=== PATIENT | male | born 1970 | race Caucasian/White ===

== ENCOUNTER → 2018-10-28 10:06 | Outpatient (CLI) | payer OTHER, SELFPAY ==
--- NOTE | 2018-10-28 10:12 | XR_ITS ---
XR knee LT 3V HISTORY: ITS.REASON: LT KNEE PAIN,IMJURY OF LT KNEE ORDERING PHYSICIAN: Zeina Llamas APRN PATIENT AGE: 47 years COMPARISON: None FINDINGS: No fracture or dislocation. No lytic or blastic change. Normal mineralization. No significant arthritic changes evident. No other significant findings IMPRESSION: Negative Knee
== END ==
PROVIDERS: PCP Nurse Practitioner Family; Visit Provider Nurse Practitioner Family
DX: S89.92XA Unspecified injury of left lower leg, initial encounter (principal)
CPT/HCPCS: 73562

== ENCOUNTER 2018-12-26 08:00 | Outpatient (RCR) | payer OTHER, SELFPAY ==
--- NOTE | 2018-11-22 09:41 | HMH.PTOPEV ---
PT Outpatient Evaluation Rehab PT Outpatient Evaluation Start: 11/22/18 08:09 Freq: Status: Active Protocol: Document 11/22/18 09:32 MARÍA (Rec: 11/22/18 09:41 PHOREGGIE [id number]) Electronically Signed By Eros Jacques, PT 11/22/18 09:32 Outpatient Therapy Subjective History Subjective History Pt is 48 yowm who presents with c/o pain in the left knee x ~ 1 mo. He reports lifting a heavy chair at work with help when he felt a pop in the post left knee with immediate pain. Pain has decreased considerably since initial injury, but remains very stiff . He reports having prior similar injury that felt worse and was determined to be meniscus tear of the left knee . He was able to follow conservative treatment with excellent results at that time , ~ 2 yrs ago. He reports worst symptoms now are with crawling on the floor. He has PMH of HTN. Chief Complaint Pain,Stiff Symptom Type Ache Symptoms Relieved By Rest/Positioning,Ice Symptoms Aggravated By Physical Activity Prior Functional Limitations None Current Functional Limitations Squatting,Walking Symptom Description Intermittent,Activity Dependent Level of pain today (0-10) 2 Pain scale - at its worst (0-10) 8 Hip/Knee Eval Gait Observation General Gait Pattern Observation No Deviations/Normal Palpation Tenderness left Knee Palpation Finding Tenderness Knee Palpation Overall Comment lateral posterior jt line MMT bilateral Hip Flexion Strength Grade 5 Normal Hip Abduction Strength Grade 5 Normal Hip Adduction Strength Grade 5 Normal Hip Extension Strength Grade 5 Normal Knee Extension Strength Grade 5 Normal Knee Flexion Strength Grade 5 Normal ROM left Hip ROM Reason Not Measured Within Functional Limits Knee Extension Active Range of Motion ( 0 degrees) Knee Extension Passive Range of Motion ( 0 degrees) Knee Flexion Active Range of Motion ( 0-110 degrees) Knee Flexion Passive Range of Motion ( 0-125 degrees) Special Tests Hip Scouring (Quadrant) Test Negative Left,Negative Right Knee Anterior Drawer Test Negative
--- NOTE | 2018-12-22 08:25 | HMH.RHREAS ---
Rehab Reassessment Rehab OP Re-assessment Start: 12/22/18 08:19 Freq: Status: Active Protocol: Document 12/22/18 08:23 MARÍA (Rec: 12/22/18 08:25 MARÍA [id number]) Electronically Signed By Eros Jacques, PT 12/22/18 08:23 Rehab Re-assessment Subjective Subjective Pt reportys much less pain, only discomfort with crawling on hands and knees. Objective Objective Notes MMT: left LE grossly 10/16 AROM: Left Knee 0-130 Pain: 06/23 Assessment Progress Assessment Progressing as Expected Assessment Notes Pt continues to see steady improvement with all symptoms. Likely D/C soon. Patient goals met ST-5 Goals Not Met LT-6 Revised Goals none Plan Plan Continue per POC Frequency of Therapy 2 x/wk Duration of therapy 8 wks Time and Billing Re-Eval Time 15 Re-Eval Billing Units 1 PHYSICIAN CERTIFICATION: I certify the specified therapy services for [place] Wilson are required, authorized, and reviewed every 30 days.
== END 2018-12-26 08:05 | disposition home or self-care (01) ==
LOC: PT 08:00
PROVIDERS: Visit Provider Nurse Practitioner Family
DX: S89.92XA Unspecified injury of left lower leg, initial encounter (principal)
CPT/HCPCS: 97010; 97014; 97016; 97033; 97035; 97110; 97163; 97164; G0283

== ENCOUNTER → 2020-01-26 08:50 | Outpatient (CLI) | payer OTHER, SELFPAY ==
--- NOTE | 2020-01-26 | CA_ITS ---
APPROVED REPORT Exam: Exercise Treadmill Technologist: Isabel Birch, Ht: 5 ft 9 in Wt: 213 lbs BSA: 2.12 m2 HR: 72 bpm BP: 150/94 mmHg Rhythm: NSR Medical History Medical History: HTN Medications: Metoprolol,,,,, Asa,,,,, Cardiac Risk Factors: HTN, FHX of CAD Stress Test Details Test: Kennedy HR Resting HR: 77 bpm Max Heart Rate (APMHR): 169 bpm Max HR Achieved: 194 bpm Target HR (85% APMHR): 143 bpm % of APMHR: 114 Recovery HR: 165 bpm BP Resting BP: 150.0/94.0 mmHg Max BP: 210.0/105.0 mmHg Recovery BP: 168.0/95.0 mmHg ECG Resting ECG: NSR Clinical Exercise duration: 12:45 min Highest Stage Achieved: Exercise capacity: 12.8 METs Stress ECG Conclusion PATIENT EXERCISED ON KENNEDY PROTOCOL 12:45 MINUTES. MAX HEART RATE 194 BPM WHICH IS 115% OF PM FOR AGE. MAX BP 210/105. METS = 12.8. TEST STOPPED DUE TO SOA AND FATIGUE. BURNING CHEST PAIN AND SOA. OCCASIONAL PVC AND FUSION BEAT. ONE V.COUPLET. ALLOWING FOR MOTION ARTIFACT THE ST RESPONSE TO EXERCISE APPEARS TO BE WITHIN NORMAL. NORMAL GXT WITH UNUSUALLY HIGH HEART RATE FOR AGE. EXCELLENT EXERCISE TOLERANCE. GXT ONLY (NO IMAGING) Test Summary REST . . . . . . . Standing REST 05:16 0.0 0.0 77 . 150/ 94 . . Stage 1 01:00 10.0 1.7 94 . . . . Stage 1 02:00 10.0 1.7 103 . . . . Stage 1 03:00 10.0 1.7 102 . 155/ 88 . . Stage 2 01:00 12.0 2.5 108 . . . . Stage 2 02:00 12.0 2.5 110 . . . . Stage 2 03:00 12.0 2.5 108 . 186/ 90 . . Stage 3 01:00 14.0 3.4 132 . . . . Stage 3 02:00 14.0 3.4 140 . . . . Stage 3 03:00 14.0 3.4 147 . 186/ 90 . . Stage 4 01:00 16.0 4.2 167 . . . . Stage 4 02:00 16.0 4.2 178 . . . . Stage 4 03:00 16.0 4.2 185 . . . . Stage 5 00:45 18.0 5.0 194 . . . Stop exercise at 12:45 RECOVERY 01:00 0.0 0.0 165 . 178/100 . . RECOVERY 02:00 0.0 0.0 135 . 178/100 . . RECOVERY 03:00 0.0 0.0 118 . 210/105 . . RECOVERY 04:00 0.0 0.0 109 . 168/ 95 . . RECOVERY 05:00 0.0 0.0 115 . 168/ 95 . . RECOVERY 06:00 0.0 0.0 112 . 179/103 . . RECOVERY 07:00 0.0 0.0 112 . 179/103 . . RECOVERY 07:27 0.0 0.0 111 . 151/ 91 . . Electronically signed by : Carlos Alberto Harding, 01/26/2020 18:47:24
--- NOTE | 2020-01-26 09:01 | US_ITS ---
PROCEDURE: US ABDOMEN LIMITED CLINICAL INDICATION: EPIGASTRIC PAIN, back pain, bloating, diarrhea and vomiting COMPARISON: No exams were available for comparison FINDINGS: PANCREAS: Unremarkable. No obvious mass or abnormal fluid collection. No ductal dilatation there is slightly overall increased echogenicity suggesting some degree of fatty infiltration. LIVER: The liver is normal in size and shows homogeneous echogenicity. Flow is hepatopetal in the nondilated main portal vein. RIGHT KIDNEY: The right kidney measures 11.5 x 4.6 by 6.7 cm and appears sonographically normal. GALLBLADDER: The gallbladder is normal in size with normal gallbladder wall thickness. There is a tiny amount of biliary sludge near the neck of the gallbladder but no gallstones are seen. The common bile duct is normal in caliber. IMPRESSION: Small amount of biliary sludge otherwise unremarkable study right upper quadrant Dictated by: Dr. David Cesar MD 01/26/2020 10:11 Dr. David Cesar MD in [place] 01/26/2020 10:11
== END ==
PROVIDERS: PCP Family Medicine; Visit Provider Family Medicine
DX: R10.13 Epigastric pain (principal)
CPT/HCPCS: 76705; 93017

== ENCOUNTER 2020-02-12 09:57 | Day surgery (SDC) | payer OTHER, SELFPAY ==
[2020-02-08 09:13] VITALS: BMI 30.8
[2020-02-12 09:53] LABS: Coronavirus 19 IgG Antibody Negative (Negative); Coronavirus 19 IgM Antibody Negative (Negative)
[2020-02-12 10:41] VITALS: BP 145/90; PULSE 59; RESP 18; TEMP 36.4; O2SAT 99
[2020-02-12 11:37] VITALS: O2SAT 98
--- NOTE | 2020-02-12 11:43 | P.PN_ITS ---
[facility] Anesthesia Checklist - Patient Identification Patient Identification: Arm Band - Structural Data Admitted From: Home Planned Operative Procedure/s: egd Consent for Planned Operative Procedure(s) Verified: Yes Verified Documents: Surgical Consent, History and Physical - NPO Status Verified Time NPO: 00:00 - Additional verifications Anesthesia Reactions: No - Airway Assessment C-Spine Mobility Assessed: Yes (mp2) TMJ Mobility Assessed: Yes Dentition: Good Dentition - Neurological Assessment Level of Consciousness: Awake, Alert - Anesthesia Plan Anesthesia Risk discussed: Yes Anesthesia Plan: Verified ASA Class: II Anesthesia Type: MAC [facility] History I have reviewed the patient's past medical history: Yes Medical History: Reports:: Gastroesophageal Reflux Disease(GERD), Hypertension Denies:: Cancer, Diabetes Mellitus Type 1, Diabetes Mellitus Type 2, Internal Pacemaker, MRSA, Seizures *Have you ever received a pneumonia vaccine?: Yes *Have you received a flu vaccine this season?: Yes Anesthesia experience/problems:: nac Other Surgeries: No: Pacemaker Amputation: No Fractures: No - *Social History Last grade of school completed: High school graduate Smoking Status: Former smoker Tobacco Type: cigars Alcohol Intake: current Alcohol Intake Frequency:: a few times a week Substance Use Type: denies use *Occupational Status:: employed Housing: house Household Members: spouse *Travel in the last 8 weeks: None Family Hx:: Hyperlipidemia, Hypertension
--- NOTE | 2020-02-12 11:56 | P.PCN_ITS ---
[facility] Procedure Note Procedure Note:: Upper Endoscopy Procedure Report: Esophagogastroduodenoscopy with cold biopsies and TTS balloon dilation Endoscopost: Arpan Allison II, MD Referring Physician: Tommy Barksdale MD Date of Procedure: February 12, 2020 Equipment: Olympus GIF 180 standard upper endoscope Sedation: MAC sedation Indications: Mr. Wilson is a 49-year-old gentleman with a prior history of dysphagia. He has had some recurrence of his dysphagia with swallowing difficulties primarily to chicken, bread and apples. He does require regurgitation of the food and feels like there is a gas bubble or gas pressure lock and when he drinks carbonated beverages and belches his symptoms of swallowing improve. He was getting some postprandial bloating but this improved after starting omeprazole. He reports no heartburn or reflux. He did have an EGD with me in January 2017 and at that time had a Schatzki's ring. Procedure: Prior to the procedure, a history and physical exam was performed, and patient's medications and allergies were reviewed. The risks, benefits and alternatives of the sedation and procedure were discussed with the patient. All questions were answered and informed consent was obtained. The patient was brought to the procedure room. Patient identification and proposed procedure were verified by the physician and the nurse. The patient was placed in a left lateral decubitus position and the scope was passed under direct vision. Throughout the procedure, the patient's blood pressure, pulse, and oxygen saturations were monitored continuously. The upper GI endoscopy was accomplished without difficulty. The patient tolerated the procedure well. Findings: The scope was passed directly into the upper esophagus and advanced to the third portion of the duodenum. The post bulbar duodenum and duodenal bulb were normal with normal mucosa and conniventes. There was a small post bulbar duodenum diverticulum in the second portion. The scope was withdrawn through a normal duodenal bulb and pylorus into the stomach. There was bile reflux with mild linear reactive gastropathy of the antrum. The remainder of the antrum, body and fundus of the stomach were grossly normal. Upon retroflexion there was a small 1 to 2 cm hiatal hernia. The scope was then withdrawn into the esophagus. There was an insignificant appearing Schatzki's ring. There was no evidence of reflux esophagitis or Ehnao's. A biopsy was taken at the GE junction to rule out intestinal metaplasia. There were tertiary contractions and evidence of moderate esophageal dysmotility. The entire esophagus was dilated to 60 Syrian/20 mm with a TTS hydrostatic balloon. There was minimal resistance identified. The remainder of the esophageal mucosa was normal. Impression: 1. Nonerosive GERD with moderate esophageal dysmotility and very small 1 to 2 cm sliding hiatal hernia status post dilation to 20 mm 2. Insignificant Schatzki's ring 3. Bile reflux with mild linear reactive gastropathy Plan: I do feel that most of his swallowing difficulty is secondary to the esophageal dysmotility. I will discuss additional dietary measures and treatment options. I will follow-up the biopsies.
[2020-02-12 12:00] VITALS: BP 105/75; PULSE 72; RESP 12; TEMP 36.4; O2SAT 93
[2020-02-12 12:10] VITALS: BP 128/80; PULSE 79; RESP 16; O2SAT 97
[2020-02-12 12:20] VITALS: BP 106/78; PULSE 60; RESP 16; O2SAT 95
[2020-02-12 12:30] VITALS: BP 113/74; PULSE 55; RESP 16; TEMP 36.4; O2SAT 98
== END 2020-02-12 12:34 | disposition home or self-care (01) ==
PROVIDERS: PCP Family Medicine; Visit Provider Internal Medicine Gastroenterology
PROC: 0DJ08ZZ Inspection of Upper Intestinal Tract, Via Natural or Artificial Opening Endoscopic (ICD-10-PCS; CPT 43235; principal; 2020-02-12 11:00)
DX: K21.9 Gastro-esophageal reflux disease without esophagitis (principal); K22.4 Dyskinesia of esophagus; K22.2 Esophageal obstruction; K31.9 Disease of stomach and duodenum, unspecified; K44.9 Diaphragmatic hernia without obstruction or gangrene; I10 Essential (primary) hypertension; Z87.891 Personal history of nicotine dependence; Z83.438 Family history of other disorder of lipoprotein metabolism and other lipidemia; Z82.49 Family history of ischemic heart disease and other diseases of the circulatory system; Z79.899 Other long term (current) drug therapy
CPT/HCPCS: 43239; 43249; 36415; 86328; C1726

== ENCOUNTER → 2020-03-19 09:02 | Outpatient (CLI) | payer OTHER, SELFPAY ==
--- NOTE | 2020-03-19 13:52 | CA_ITS ---
APPROVED REPORT EXAM: Comprehensive 2D, Doppler, and color-flow Echocardiogram Binder Stripper Machine: Lindsay Khan RDCS Ht: 5 ft 9 in Wt: 218lbs BSA: 2.14 BP: 133/86 mmHg Indications: ABN GXT,SOA,TACHYCARDIA,EX SMOKER,SOA,HTN 2D Dimensions LVOT 1.97 cm (M/F) 1.5-2.5 M-Mode Dimensions RVDd 3.46 cm (0.9-2.6) LVDd 5.32 cm (3.5-5.7) LVDs 3.80 cm (3.5-5.7) IVSd 0.57 cm (0.6-1.1) PWd 1.03 cm (0.6-1.1) EF (Teich) 54.60% FS 28.60% EDV (Teich) 136.50 mL ESV (Teich) 62.00 mL LV Diastology E/A Ratio 0.79 Mitral Valve MV A Velocity 58.00 (40-130 cm/s) Left Ventricle Left atrium is mildly enlarged, left ventricle is normal size, mild concentric left ventricular hypertrophy, visually estimated ejection fraction 55% with no regional wall motion abnormality, grade 1 diastolic dysfunction seen without tissue Doppler evidence of raise left atrial pressure. Right Ventricle Right atrium and right ventricle are mildly enlarged with normal contractility. Aortic Valve Aortic valve is minimally thickened and fibrosed, there is no aortic stenosis or aortic insufficiency. Mitral Valve Mitral valve is grossly normal, there is mild mitral regurgitation. Tricuspid Valve Tricuspid valve grossly normal, there is mild tricuspid regurgitation. Tricuspid regurgitation jet velocity is inadequate for calculation of the right ventricular systolic pressure. Pulmonic Valve Pulmonic valve is poorly visualized. Great Vessels Aortic root is normal size. Pericardium No significant pericardial effusion noted. Conclusion 1. Mild biatrial enlargement, normal left ventricular size, mild concentric left ventricular hypertrophy, visually estimated ejection fraction 55% with no regional wall motion abnormality, grade 1 diastolic dysfunction seen without tissue Doppler evidence of raise left atrial pressure. 2. Mildly enlarged right ventricle with normal contractility. 3. Mild mitral and tricuspid regurgitation. 4. No significant pericardial effusion noted. Electronically signed by : José Manuel Paige, 03/19/2020 19:42:11
== END ==
PROVIDERS: PCP Family Medicine; Visit Provider Family Medicine
DX: R00.0 Tachycardia, unspecified (principal); R07.9 Chest pain, unspecified; R06.00 Dyspnea, unspecified; R94.31 Abnormal electrocardiogram [ECG] [EKG]; R94.39 Abnormal result of other cardiovascular function study; I10 Essential (primary) hypertension; K21.9 Gastro-esophageal reflux disease without esophagitis; Z82.49 Family history of ischemic heart disease and other diseases of the circulatory system; Z87.891 Personal history of nicotine dependence
CPT/HCPCS: 93225; 93226; 93306

== ENCOUNTER → 2020-03-19 13:46 | Outpatient (CLI) | payer SELFPAY ==
--- NOTE | 2020-03-19 13:55 | CT_ITS ---
PROCEDURE: CT HEART W CALCIUM SCORE CLINICAL HISTORY: angina, ex smoker, HTN, HLD COMPARISON: No exams were available for comparison TECHNIQUE: Axial images obtained with sagittal and coronal reformats. All CT scans at the facility use one or more dose reduction, viz: automated exposure control, ma/kV adjustment per patient size (including targeted exams where dose is matched to indication, i.e. head), or iterative reconstruction technique. FINDINGS: Coronary artery calcium score is 196.. Moderate calcific plaque burden with high cardiovascular disease risk IMPRESSION: Moderate calcific plaque burden with high cardiovascular disease risk Dictated by: Mariusz White MD 03/19/2020 18:34 Mariusz White MD in [place] 03/19/2020 18:34
== END ==
PROVIDERS: PCP Family Medicine; Visit Provider Internal Medicine Cardiovascular Disease
DX: Z13.6 Encounter for screening for cardiovascular disorders (principal); I10 Essential (primary) hypertension; R00.0 Tachycardia, unspecified; R06.00 Dyspnea, unspecified; R07.9 Chest pain, unspecified; R94.31 Abnormal electrocardiogram [ECG] [EKG]; R94.39 Abnormal result of other cardiovascular function study; Z82.49 Family history of ischemic heart disease and other diseases of the circulatory system; Z87.891 Personal history of nicotine dependence
CPT/HCPCS: 75571

== ENCOUNTER → 2020-03-20 10:30 | Outpatient (CLI) | payer OTHER, SELFPAY ==
[2020-03-20 11:05] LABS: Basophils # 0.1 K/mm3 (0-0.2); Basophils % 0.8 % (0.1-2.0); Eosinophils # 0.3 K/mm3 (0.0-0.4); Eosinophils % 4.4 % (0.1-12.0); Hematocrit 49.6 % (42.0-52.0); Hemoglobin 15.7 g/dL (14.1-18.0); Lymphocytes # 1.9 K/mm3 (0.7-4.5); Lymphocytes % 32.4 % (10-50); Mean Corpuscular HGB Conc 31.6 g/dL (31.8-35.4); Mean Corpuscular Hemoglobin 30.8 pg (27.0-31.2); Mean Corpuscular Volume 97.4 fl (80-94); Mean Platelet Volume 7.5 fl (7.4-10.4); Monocytes # 0.5 K/mm3 (0.1-1.0); Monocytes % 7.9 % (1.7-9.3); Neutrophils # 3.2 K/mm3 (1.8-7.8); Neutrophils % 54.6 % (37.0-80.0); Platelet Count 270 K/mm3 (142-424); Red Blood Count 5.09 M/mm3 (4.60-6.20); White Blood Count 5.9 K/mm3 (4.8-10.8)
[2020-03-20 11:41] LABS: Chloride 102 mmol/L (98-107); Potassium 4.6 mmoL/L (3.5-5.1); Sodium 140 mmol/L (136-145)
[2020-03-20 11:44] LABS: Anion Gap 13.6 mEq/L (5-15); Blood Urea Nitrogen 13 mg/dl (9-20); Calcium 9.5 mg/dl (8.4-10.2); Carbon Dioxide 29 mmol/L (22.0-30.0); Estimated Glomerular Filt Rate 119 ml/min (>60); GFR (African American) 144 ML/MIN (>60); Glucose 114 mg/dl (74-100)
[2020-03-20 12:28] LABS: Coronavirus 19 IgM Antibody Negative (Negative)
[2020-03-20 12:29] LABS: Coronavirus 19 IgG Antibody Positive (Negative)
== END ==
PROVIDERS: Visit Provider Internal Medicine
DX: Z01.89 Encounter for other specified special examinations (principal); I20.8 Other forms of angina pectoris; R06.00 Dyspnea, unspecified; I10 Essential (primary) hypertension; R93.1 Abnormal findings on diagnostic imaging of heart and coronary circulation; U07.1 COVID-19
CPT/HCPCS: 36415; 80048; 85025; 86328

== ENCOUNTER 2020-03-22 08:35 | Day surgery (SDC) | payer OTHER, SELFPAY ==
[2020-03-22] VITALS (11 sets, daily range): BP systolic 110–139; BP diastolic 65–102; PULSE 60–78; RESP 16–20; TEMP 36.4; O2SAT 92–100; BMI 32.0
--- NOTE | 2020-03-22 07:16 | IR_ITS ---
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 COMPLICATIONS NONE Estimated Blood Loss: less than 10 mls TECHNIQUE One percent lidocaine used to anesthetize the right anterior aspect of the wrist. The right radial artery was accessed via the Seldinger technique. A 6 Tajik sheath was placed in the right radial artery. 2.5 mg of verapamil, 800 mcg of nitroglycerin, 1mg Lidocaine and 5000 U Heparin were given through the arterial sheath. The trap catheter was also used to perform left heart catheterization, left ventriculogram and selective coronary angiogram. At the end of the procedure the sheath was removed good hemostasis was achieved using Traclet band, patient was transferred to the postop holding area in stable condition. 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 Medical management for the myocardial bridge as well as the mid dominant right coronary artery stenosis 2. Recommend LDL less than 55 3. Avoidance of tobacco products 4. Patient may benefit from low-dose beta-blockers or verapamil or diltiazem. It is very unlikely the myocardial bridge will produce any clinical significance in the future 5. Aspirin 81 mg daily 6. Aggressive risk factor modification Electronically signed by : Marck Valenzuela, 03/22/2020 10:07:32
== END 2020-03-22 12:56 | disposition home or self-care (01) ==
LOC: CATHLAB 08:36
PROVIDERS: PCP Family Medicine; Visit Provider Internal Medicine
DX: I25.118 Atherosclerotic heart disease of native coronary artery with other forms of angina pectoris (principal); I10 Essential (primary) hypertension; K21.9 Gastro-esophageal reflux disease without esophagitis; R06.00 Dyspnea, unspecified; R93.1 Abnormal findings on diagnostic imaging of heart and coronary circulation; Z87.891 Personal history of nicotine dependence; Z79.82 Long term (current) use of aspirin
CPT/HCPCS: 93458; 99152; C1725; C1769; J1644; Q9967

== ENCOUNTER → 2020-04-01 11:42 | Outpatient (CLI) | payer OTHER, SELFPAY | PROVIDERS: PCP Family Medicine; Visit Provider Internal Medicine Cardiovascular Disease | DX: G47.30 Sleep apnea, unspecified (principal); R40.0 Somnolence; R53.83 Other fatigue; I25.10 Atherosclerotic heart disease of native coronary artery without angina pectoris; E66.9 Obesity, unspecified; Q24.5 Malformation of coronary vessels | CPT/HCPCS: G0399 ==

== ENCOUNTER → 2020-04-05 10:55 | Outpatient (CLI) | payer OTHER, SELFPAY ==
[2020-04-05 13:55] LABS: Chloride 100 mmol/L (98-107); Potassium 4.4 mmoL/L (3.5-5.1); Sodium 139 mmol/L (136-145)
[2020-04-05 13:58] LABS: Anion Gap 11.4 mEq/L (5-15); Blood Urea Nitrogen 13 mg/dl (9-20); Calcium 9.2 mg/dl (8.4-10.2); Carbon Dioxide 32 mmol/L (22.0-30.0); Estimated Glomerular Filt Rate 119 ml/min (>60); GFR (African American) 144 ML/MIN (>60); Glucose 96 mg/dl (74-100)
[2020-04-05 14:07] LABS: NT Pro Brain Natriuretic Pep. 24.8 pg/mL (0-125)
== END ==
PROVIDERS: Visit Provider Internal Medicine Cardiovascular Disease
DX: R00.0 Tachycardia, unspecified (principal); R06.00 Dyspnea, unspecified; R07.9 Chest pain, unspecified; R94.31 Abnormal electrocardiogram [ECG] [EKG]; I10 Essential (primary) hypertension; K21.9 Gastro-esophageal reflux disease without esophagitis; Z82.49 Family history of ischemic heart disease and other diseases of the circulatory system; Z87.891 Personal history of nicotine dependence
CPT/HCPCS: 36415; 80048; 83880

== ENCOUNTER → 2020-04-17 09:38 | Outpatient (CLI) | payer OTHER, SELFPAY ==
[2020-04-17 12:36] LABS: Ferritin 27.1 ng/ml (17.9-464)
== END ==
PROVIDERS: Visit Provider Nurse Practitioner Family
DX: E83.10 Disorder of iron metabolism, unspecified (principal); G25.81 Restless legs syndrome; G47.33 Obstructive sleep apnea (adult) (pediatric)
CPT/HCPCS: 36415; 82728

== ENCOUNTER → 2020-05-28 15:14 | Outpatient (CLI) | payer OTHER, SELFPAY ==
[2020-05-28 16:28] LABS: Coronavirus 19 IgG Antibody Negative (Negative); Coronavirus 19 IgM Antibody Negative (Negative)
== END ==
PROVIDERS: Visit Provider Nurse Practitioner Family
DX: Z01.818 Encounter for other preprocedural examination (principal)
CPT/HCPCS: 36415; 86328

== ENCOUNTER → 2020-05-29 20:10 | Outpatient (CLI) | payer OTHER, SELFPAY | PROVIDERS: PCP Family Medicine; Visit Provider Nurse Practitioner Family | DX: G47.30 Sleep apnea, unspecified (principal); I10 Essential (primary) hypertension; R40.0 Somnolence | CPT/HCPCS: 95810 ==

== ENCOUNTER → 2020-07-17 09:10 | Outpatient (CLI) | payer OTHER, SELFPAY ==
--- NOTE | 2020-07-17 09:21 | XR_ITS ---
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 There is mild rightward nasal septal deviation. There is mild prominence of the dorsum sella. IMPRESSION: No acute finding. Mild prominence of the dorsum sella. This is of questionable clinical significance Dictated by: Mariusz White MD 07/17/2020 15:51 Mariusz White MD in [place] 07/17/2020 15:51
== END ==
PROVIDERS: PCP Family Medicine; Visit Provider Family Medicine
DX: J01.20 Acute ethmoidal sinusitis, unspecified (principal); J32.0 Chronic maxillary sinusitis
CPT/HCPCS: 70220

== ENCOUNTER → 2020-07-24 08:20 | Outpatient (CLI) | payer OTHER, SELFPAY ==
[2020-07-24 09:04] LABS: Erythrocyte Sedimentation Rate 8 mm/hr (0-20)
[2020-08-12 08:37] LABS: Antinuclear Antibodies (ANA) NEGATIVE
== END ==
PROVIDERS: Visit Provider Specialist
DX: R51.9 Headache, unspecified (principal); Q27.9 Congenital malformation of peripheral vascular system, unspecified; R93.0 Abnormal findings on diagnostic imaging of skull and head, not elsewhere classified
CPT/HCPCS: 36415; 85651; 86038

== ENCOUNTER → 2021-07-10 08:57 | Outpatient (CLI) | payer OTHER, SELFPAY ==
[2021-07-11 13:25] LABS: Covid-19 Nasal PCR Sendout Lex POSITIVE
== END ==
PROVIDERS: Visit Provider Nurse Practitioner
DX: U07.1 COVID-19 (principal)
CPT/HCPCS: C9803; U0004; U0005

== ENCOUNTER 2022-04-04 18:40 | Emergency (ER) | payer OTHER, SELFPAY ==
[2022-04-04 18:51] VITALS: BP 121/86; PULSE 92; RESP 16; TEMP 36.9; O2SAT 97; BMI 28.9
--- NOTE | 2022-04-04 19:39 | EXP.UTC ---
Discharge Plan Disposition Patient Disposition: Home, Self-Care Condition: Good Prescriptions Prescriptions: No Action omega-3 fatty acids [Fish Oil Concentrate] 1,000 mg capsule 1,000 mg PO DAILY aspirin [Adult Low Dose Aspirin] 81 mg tablet,delayed release (DR/EC) 81 mg PO DAILY Qty: 30 3RF Ubrelvy 100 mg tablet 100 mg PO ONCE PRN Ubrelvy 100 mg tablet 0RF amitriptyline 10 mg tablet 20 mg PO HS 90 Days Qty: 180 3RF rosuvastatin [Crestor] 20 mg tablet 20 mg PO DAILY Qty: 90 3RF metoprolol succinate [Toprol XL] 100 mg tablet extended release 24 hr 100 mg PO DAILY Qty: 90 3RF losartan 50 mg tablet See Rx Instructions .ROUTE .COMPLEX Qty: 90 1RF Dose Instruction: TAKE 1 TABLET BY MOUTH ONCE DAILY WITH HCTZ Rx Instructions: TAKE 1 TABLET BY MOUTH ONCE DAILY WITH HCTZ hydrochlorothiazide 12.5 mg capsule See Rx Instructions .ROUTE .COMPLEX Qty: 90 1RF Dose Instruction: TAKE 1 CAPSULE BY MOUTH ONCE DAILY WITH LOSARTAN Rx Instructions: TAKE 1 CAPSULE BY MOUTH ONCE DAILY WITH LOSARTAN omeprazole 40 MG capsule,delayed release(DR/EC) 40 mg PO DAILY Referrals Follow up/Referrals: Kemar Aguilar MD [Physician] - See instructions Kathy Barksdale MD [Primary Care Provider] - See instructions Activity Restrictions/Add. Instructions Additional Instructions/Restrictions: Take tylenol or ibuprofen for pain or fever. Follow up with the ENT doctor here. I put in a referral and I will call them on Wednesday to make sure they will see you fernnada. Please call the office on Wednesday to make the appointment. The number will be on this paperwork. GO TO THE ER FOR ANY WORSENING SYMPTOMS Clinical Impressions Clinical Impression: Foreign body in auricle of left ear Instructions Patient Instructions: DI for Removal of Foreign Body From Ear Discharge ED Provider: Ch[place] Clark [facility] General Stated complaint: hearing aid cap inlarged in ear Mode of Arrival: Ambulatory Source of Information: Patient Limitations: No Limitations Time Seen by Provider: 04/04/22 19:52 Description of Symptoms (Recalled from Triage Doc. by RN): pt comes in with possible piece of hearing aid stuck in ear canal. HEENT Symptoms (Recalled from RN notes): Yes Resp Symptoms (Recalled from RN notes): No Skin Symptoms (Recalled from RN notes): No MS Symptoms (Recalled from RN notes): No Functional Status (Recalled from RN notes): n/a History of Present Illness Provider Complaint: He states that this morning, when he was changing his ear piece on his left hearing aid the accidently let the ear piece go back into his ear canal. He states that for the rest of the day he has been unable to get it out. He denies any ear pain, but he is having some pressure and decreased hearing in that ear now. Related Data Home Medications Medication Instructions Recorded Confirmed omeprazole 40 mg capsule,delayed 40 mg PO DAILY stomach 02/08/20 02/17/22 release omega-3 fatty acids 1,000 mg 1,000 mg PO DAILY 03/15/20 02/17/22 capsule (Fish Oil Concentrate) ubrogepant 100 mg tablet (Ubrelvy) 100 mg PO ONCE PRN 12/27/20 02/17/22 Previous Rx's Medication Instructions Recorded aspirin 81 mg tablet,delayed 81 mg PO DAILY #30 tabs 03/15/20 release (Adult Low Dose Aspirin) metoprolol succinate 100 mg 100 mg PO DAILY #90 tabs 06/30/21 tablet,extended release 24 hr (Toprol XL) rosuvastatin 20 mg tablet (Crestor) 20 mg PO DAILY #90 tabs 06/30/21 hydrochlorothiazide 12.5 mg capsule See Rx Instructions .Route 12/11/21 .COMPLEX #90 caps losartan 50 mg tablet See Rx Instructions .Route 12/11/21 .COMPLEX #90 tabs amitriptyline 10 mg tablet 20 mg PO HS headaches 90 days #180 02/17/22 tabs Allergies Allergy/AdvReac Type Severity Reaction Status Date / Time No Known Allergies Allergy Verified 04/04/22 18:57 Worker's Comp Is this a Worker's Comp case?:
[2022-04-04 19:49] VITALS: BP 121/86; PULSE 92; RESP 16; TEMP 36.9
== END 2022-04-04 19:55 | disposition home or self-care (01) ==
PROVIDERS: Emergency Provider Nurse Practitioner Family; PCP Family Medicine
DX: T16.2XXA Foreign body in left ear, initial encounter (principal); I20.9 Angina pectoris, unspecified; G44.209 Tension-type headache, unspecified, not intractable; Z79.82 Long term (current) use of aspirin; Z79.899 Other long term (current) drug therapy; Z87.891 Personal history of nicotine dependence; Z82.49 Family history of ischemic heart disease and other diseases of the circulatory system; Z83.438 Family history of other disorder of lipoprotein metabolism and other lipidemia
CPT/HCPCS: 69200; 99213; G0463

== ENCOUNTER 2022-06-14 11:06 | Emergency (ER) | payer OTHER, SELFPAY ==
[2022-06-14 11:35] VITALS: BP 108/68; PULSE 71; RESP 18; TEMP 37; O2SAT 97; BMI 30.2
--- NOTE | 2022-06-14 11:37 | EXP.UTC ---
Discharge Plan Disposition Patient Disposition: Home, Self-Care Condition: Good Prescriptions Prescriptions: New benzonatate [benzonatate] 100 mg capsule 100 mg PO TIDP PRN (Reason: Cough) Qty: 30 0RF methylprednisolone 4 mg Tablets,Dose Pack 4 mg PO DIRECTED Qty: 21 0RF amoxicillin-pot clavulanate 875-125 mg Tablet 1 tab PO Q12H Qty: 20 0RF guaifenesin [Mucinex] 600 mg tablet extended release 12hr 600 - 1,200 mg PO BIDP PRN (Reason: Congestion) Qty: 30 0RF No Action omega-3 fatty acids [Fish Oil Concentrate] 1,000 mg capsule 1,000 mg PO DAILY aspirin [Adult Low Dose Aspirin] 81 mg tablet,delayed release (DR/EC) 81 mg PO DAILY Qty: 30 3RF Ubrelvy 100 mg tablet 0RF amitriptyline 10 mg tablet 20 mg PO HS 90 Days Qty: 180 3RF rosuvastatin [Crestor] 20 mg tablet 20 mg PO DAILY Qty: 90 3RF metoprolol succinate [Toprol XL] 100 mg tablet extended release 24 hr 100 mg PO DAILY Qty: 90 3RF losartan 50 mg tablet See Rx Instructions .ROUTE .COMPLEX Qty: 90 1RF Dose Instruction: TAKE 1 TABLET BY MOUTH ONCE DAILY WITH HCTZ Rx Instructions: TAKE 1 TABLET BY MOUTH ONCE DAILY WITH HCTZ hydrochlorothiazide 12.5 mg capsule See Rx Instructions .ROUTE .COMPLEX Qty: 90 1RF Dose Instruction: TAKE 1 CAPSULE BY MOUTH ONCE DAILY WITH LOSARTAN Rx Instructions: TAKE 1 CAPSULE BY MOUTH ONCE DAILY WITH LOSARTAN omeprazole 40 MG capsule,delayed release(DR/EC) 40 mg PO DAILY Referrals Follow up/Referrals: Kathy Barksdale MD [Primary Care Provider] - See instructions Activity Restrictions/Add. Instructions Additional Instructions/Restrictions: Drink plenty of fluids. Take tylenol or ibuprofen for pain or fever. Take the medications as directed. Follow up with your regular doctor. GO TO THE ER FOR ANY WORSENING SYMPTOMS Don't start the oral steroids until tomorrow, since you had the shot here today. Clinical Impressions Clinical Impression: Sinusitis, Acute bronchitis Instructions Patient Instructions: DI for Sinusitis, DI for Acute Bronchitis Discharge ED Provider: Chico Clark [facility] General Stated complaint: Sore throat,cough,Congestion Time Seen by Provider: 06/14/22 11:37 History of Present Illness Provider Complaint: He states that for the past 4 days he has had sinus congestion, chest congestion, productive cough, and malaise. He denies shortness of breath/fever/chills/body aches. He had a negative covid-19 test yesterday. Related Data Home Medications Medication Instructions Recorded Confirmed omeprazole 40 mg capsule,delayed 40 mg PO DAILY stomach 02/08/20 02/17/22 release omega-3 fatty acids 1,000 mg 1,000 mg PO DAILY 03/15/20 02/17/22 capsule (Fish Oil Concentrate) Previous Rx's Medication Instructions Recorded aspirin 81 mg tablet,delayed 81 mg PO DAILY #30 tabs 03/15/20 release (Adult Low Dose Aspirin) metoprolol succinate 100 mg 100 mg PO DAILY #90 tabs 06/30/21 tablet,extended release 24 hr (Toprol XL) rosuvastatin 20 mg tablet (Crestor) 20 mg PO DAILY #90 tabs 06/30/21 losartan 50 mg tablet See Rx Instructions .Route 12/11/21 .COMPLEX #90 tabs amitriptyline 10 mg tablet 20 mg PO HS headaches 90 days #180 02/17/22 tabs hydrochlorothiazide 12.5 mg capsule See Rx Instructions .Route 06/09/22 .COMPLEX #90 caps amoxicillin 875 mg-potassium 1 tab PO Q12H #20 tabs 06/14/22 clavulanate 125 mg tablet benzonatate 100 mg capsule 100 mg PO TIDP PRN Cough #30 caps 06/14/22 guaifenesin 600 mg tablet, 600 - 1,200 mg PO BIDP PRN 06/14/22 extended release 12 hr (Mucinex) Congestion #30 tabs methylprednisolone 4 mg tablets in 4 mg PO DIRECTED #21 tabs 06/14/22 a dose pack Allergies Allergy/AdvReac Type Severity Reaction Status Date / Time No Known Allergies Allergy Verified 04/06/22 13:27 [facility] Disclaimer: The information contained in this section m
[2022-06-14 11:49] LABS: UTC Strep Screen (Rapid) Negative (Negative)
[2022-06-14 11:50] LABS: UTC Influenza A Antigen Negative (Negative); UTC Influenza B Antigen Negative (Negative)
[2022-06-14 12:25] VITALS: BP 108/68; PULSE 71; RESP 18; TEMP 37; O2SAT 97
== END 2022-06-14 12:29 | disposition home or self-care (01) ==
PROVIDERS: Emergency Provider Nurse Practitioner Family; PCP Family Medicine
DX: J20.9 Acute bronchitis, unspecified (principal); J32.9 Chronic sinusitis, unspecified
CPT/HCPCS: 87804; 87880; 96372; 99212; 99213; G0463

== ENCOUNTER → 2023-01-27 09:54 | Outpatient (CLI) | payer BC, SELFPAY ==
[2023-01-27 10:36] LABS: Basophils % 0.7 % (0.1-2.0); Eosinophils # 0.3 K/mm3 (0.0-0.4); Eosinophils % 4.4 % (0.1-12.0); Hematocrit 50.5 % (42.0-52.0); Hemoglobin 16.5 g/dL (14.1-18.0); Lymphocytes # 1.8 K/mm3 (0.7-4.5); Lymphocytes % 32.1 % (10-50); Mean Corpuscular HGB Conc 32.6 g/dL (31.8-35.4); Mean Corpuscular Hemoglobin 31.3 pg (27.0-31.2); Mean Corpuscular Volume 96.1 fl (80-94); Mean Platelet Volume 7.7 fl (7.4-10.4); Monocytes # 0.4 K/mm3 (0.1-1.0); Monocytes % 7.1 % (1.7-9.3); Neutrophils # 3.1 K/mm3 (1.8-7.8); Neutrophils % 55.6 % (37.0-80.0); Platelet Count 256 K/mm3 (142-424); Red Blood Count 5.26 M/mm3 (4.60-6.20); Red Cell Distribution Width 13.5 % (11.5-17.5); White Blood Count 5.7 K/mm3 (4.8-10.8)
[2023-01-27 11:48] LABS: Alanine Aminotransferase 25 U/L (12-78); Albumin Level 4.4 g/dl (3.5-5.0); Alkaline Phosphatase 90 U/L (38-126); Anion Gap 11.7 mEq/L (5-15); Aspartate Amino Transferase 29 U/L (17-59); Bilirubin,Indirect 0.4 mg/dL (0.0-0.9); Bilirubin,Total 0.4 mg/dl (0.2-1.3); Bilirubin,Unconjugated 0.5 mg/dL (0.0-1.1); Blood Urea Nitrogen 14 mg/dl (9-20); Calcium 9.3 mg/dl (8.4-10.2); Carbon Dioxide 30 mmol/L (22.0-30.0); Chloride 104 mmol/L (98-107); Chol/HDL Ratio 3.7 (1-3.5); Cholesterol 151 mg/dl (140-200); Estimated Glomerular Filt Rate 118 ml/min (>60); GFR (African American) 142 ML/MIN (>60); Glucose 99 mg/dl (74-100); HDL Cholesterol 41 mg/dl (40-60); Magnesium 1.8 mg/dl (1.6-2.3); Potassium 4.7 mmoL/L (3.5-5.1); Sodium 141 mmol/L (136-145); Total Protein,Serum 7.1 g/dl (6.3-8.2); Triglycerides 140 mg/dl (30-150); VLDL Cholesterol 28 mg/dL (0-40)
[2023-01-27 11:59] LABS: Direct LDL Cholesterol 78.29 mg/dL (100-129)
[2023-01-27 12:05] LABS: Free T4 (Free Thyroxine) 0.73 ng/dl (0.78-2.19)
== END ==
PROVIDERS: PCP Family Medicine; Visit Provider Nurse Practitioner
DX: I25.10 Atherosclerotic heart disease of native coronary artery without angina pectoris (principal); I10 Essential (primary) hypertension; E78.5 Hyperlipidemia, unspecified; Q24.5 Malformation of coronary vessels; R94.31 Abnormal electrocardiogram [ECG] [EKG]
CPT/HCPCS: 80048; 80061; 80076; 83735; 84439; 84443; 85025

== ENCOUNTER 2024-01-31 08:56 | Outpatient (CLI) | payer BC, SELFPAY ==
[2024-01-31 09:28] LABS: Basophils # 0.1 K/mm3 (0-0.2); Eosinophils # 0.3 K/mm3 (0.0-0.4); Eosinophils % 4.4 % (0.1-12.0); Hematocrit 48.8 % (42.0-52.0); Hemoglobin 15.4 g/dL (14.1-18.0); Lymphocytes # 2.2 K/mm3 (0.7-4.5); Lymphocytes % 36.2 % (10-50); Mean Corpuscular HGB Conc 31.6 g/dL (31.8-35.4); Mean Corpuscular Hemoglobin 31.1 pg (27.0-31.2); Mean Corpuscular Volume 98.4 fl (80-94); Monocytes # 0.4 K/mm3 (0.1-1.0); Monocytes % 5.9 % (1.7-9.3); Neutrophils # 3.2 K/mm3 (1.8-7.8); Neutrophils % 52.5 % (37.0-80.0); Platelet Count 259 K/mm3 (142-424); Red Blood Count 4.96 M/mm3 (4.60-6.20); Red Cell Distribution Width 13.7 % (11.5-17.5)
[2024-01-31 10:23] LABS: Alanine Aminotransferase 22 U/L (12-78); Albumin Level 3.8 g/dl (3.5-5.0); Alkaline Phosphatase 68 U/L (38-126); Anion Gap 10.4 mEq/L (5-15); Aspartate Amino Transferase 28 U/L (17-59); Bilirubin,Indirect 0.5 mg/dL (0.0-0.9); Bilirubin,Total 0.5 mg/dl (0.2-1.3); Bilirubin,Unconjugated 0.7 mg/dL (0.0-1.1); Blood Urea Nitrogen 14 mg/dl (9-20); Calcium 9.2 mg/dl (8.4-10.2); Carbon Dioxide 26 mmol/L (22.0-30.0); Chloride 106 mmol/L (98-107); Cholesterol 123 mg/dl (140-200); Estimated Glomerular Filt Rate 117 ml/min (>60); GFR (African American) 142 ML/MIN (>60); Glucose 101 mg/dl (74-100); HDL Cholesterol 41 mg/dl (40-60); Magnesium 1.8 mg/dl (1.6-2.3); Potassium 4.4 mmoL/L (3.5-5.1); Sodium 138 mmol/L (136-145); Total Protein,Serum 6.4 g/dl (6.3-8.2); Triglycerides 186 mg/dl (30-150); VLDL Cholesterol 37 mg/dL (0-40)
[2024-01-31 10:34] LABS: Direct LDL Cholesterol 46.54 mg/dL (100-129)
[2024-01-31 10:38] LABS: Free T4 (Free Thyroxine) 0.95 ng/dl (0.78-2.19)
== END 2024-01-31 23:59 | disposition home or self-care (01) ==
LOC: LAB 08:57
PROVIDERS: PCP Family Medicine; Visit Provider Nurse Practitioner
DX: E78.49 Other hyperlipidemia (principal); I11.9 Hypertensive heart disease without heart failure; I25.10 Atherosclerotic heart disease of native coronary artery without angina pectoris; Q24.5 Malformation of coronary vessels; R94.31 Abnormal electrocardiogram [ECG] [EKG]; Z87.891 Personal history of nicotine dependence
CPT/HCPCS: 36415; 80048; 80061; 80076; 83735; 84439; 84443; 85025

== ENCOUNTER 2025-01-01 09:24 | Day surgery (SDC) | payer BC, SELFPAY ==
[2024-12-29 12:09] VITALS: BMI 30.2
[2025-01-01 09:52] VITALS: BP 118/89; PULSE 73; RESP 18; TEMP 36.3; O2SAT 98
[2025-01-01] MEDS: LACTATED RINGERS 1000ML 1,000 ML 50 ML IV (10:04)
--- NOTE | 2025-01-01 10:08 | EXP.ANES.CKL ---
[facility] Disclaimer: The information contained in this section may have been updated after the patient was seen, as this information can be updated by other users. Medical History History of COVID-19 Hyperlipidemia Hypertension Myocardial bridge Injury of femoral artery Episodic tension-type headache, not intractable Elevated coronary artery calcium score Atypical angina Surgical History History of colonoscopy Hx of cardiac catheterization Family History Other Coronary artery disease Heart attack Hyperlipidemia Hypertension Social History Smoking Status: Former smoker tobacco type: cigars smoking status stop date: 1996 second hand exposure: No alcohol intake: current alcohol intake frequency: a few times a month substance use type: denies use current occupational status: employed and retired Travel in the last 8 weeks?: None household members: spouse housing: house current occupation: [employer] current occupational exposures/hazards: No Have you lived/traveled outside [place] in past 30 days?: No Contact w/someone who lives/traveled outside [place] past 30 days?: No Exposure to someone with infectious disease in past 14 days?: No Do you have a fever (greater than 100.4 F or 38 C)?: No Have you tested positive for COVID-19?: No Exposed to someone with COVID-19 in past 14 days?: No Do you have a sore throat?: No Do you have a cough?: No Do you have any weakness?: No Are you experiencing any nausea/vomitting?: No Do you have any diarrhea?: No Are you experiencing any unusual bleeding?: No Do you have any muscle aches/pain?: No Do you have any abdominal pain?: No Are you experiencing loss of taste or smell?: No [facility] Anesthesia Checklist Patient Identification Patient Identification: Arm Band Structural Data Admitted From: Home Planned Operative Procedure/s: Colonoscopy Consent for Planned Operative Procedure(s) Verified: Yes Verified Documents: Surgical Consent and History and Physical NPO Status Verified Time NPO: 07:00 (finished prep) Additional verifications Anesthesia Reactions: No Airway Assessment Mallampati Score:: Class II C-Spine Mobility Assessed: Yes TMJ Mobility Assessed: Yes Dentition: Good Dentition Neurological Assessment Level of Consciousness: Awake, Alert and Appropriate Anesthesia Plan Anesthesia Risk discussed: Yes Anesthesia Plan: Verified ASA Class: II Anesthesia Type: MAC
--- NOTE | 2025-01-01 10:30 | EXP.HP ---
History of Present Illness *Admission Date: 01/01/25 *Reason for visit:: Personal history of colon polyps *History of present illness: Mr. Wilson is a 54-year-old gentleman who is here for screening colonoscopy. Years ago he did have colon polyps removed. The examination is deemed medically necessary for screening colonoscopy. The patient has been seen, interviewed and examined prior to the procedure by both myself and the anesthesia provider. [facility] Disclaimer: The information contained in this section may have been updated after the patient was seen, as this information can be updated by other users. Medical History (Updated 01/01/25 @ 10:36 by Arpan Allison II, MD) History of COVID-19 Hyperlipidemia Hypertension Myocardial bridge Injury of femoral artery Episodic tension-type headache, not intractable Elevated coronary artery calcium score Atypical angina Surgical History History of colonoscopy Hx of cardiac catheterization Family History Other Coronary artery disease Heart attack Hyperlipidemia Hypertension Social History Smoking Status: Former smoker tobacco type: cigars smoking status stop date: 1996 second hand exposure: No alcohol intake: current alcohol intake frequency: a few times a month substance use type: denies use current occupational status: employed and retired Travel in the last 8 weeks?: None household members: spouse housing: house current occupation: [employer] current occupational exposures/hazards: No Have you lived/traveled outside [place] in past 30 days?: No Contact w/someone who lives/traveled outside [place] past 30 days?: No Exposure to someone with infectious disease in past 14 days?: No Do you have a fever (greater than 100.4 F or 38 C)?: No Have you tested positive for COVID-19?: No Exposed to someone with COVID-19 in past 14 days?: No Do you have a sore throat?: No Do you have a cough?: No Do you have any weakness?: No Are you experiencing any nausea/vomitting?: No Do you have any diarrhea?: No Are you experiencing any unusual bleeding?: No Do you have any muscle aches/pain?: No Do you have any abdominal pain?: No Are you experiencing loss of taste or smell?: No Other Medical History Have you received the Flu Vaccine for this season: Yes Have you received the Pneumonia Vaccine: No Review of Systems Review of Systems Review of systems (narrative): Negative *Cardiovascular Comments: Negative *Gastrointestinal Comments: Negative *Genitourinary Comments: Negative *Musculoskeletal Comments: Negative *Neurologic Comments: Negative Meds Home Medications and Allergies Home Medications ?Medication ?Instructions ?Recorded ?Confirmed ?Type aspirin 81 mg tablet,delayed 81 mg PO DAILY #30 tabs 03/15/20 01/01/25 Rx release (Adult Low Dose Aspirin) omega-3 fatty acids 1,000 mg 1,000 mg PO DAILY 03/15/20 01/01/25 History capsule (Fish Oil Concentrate) rosuvastatin 20 mg tablet 20 mg PO DAILY #90 tabs 01/31/24 01/01/25 Rx sodium,potassium,mag sulfates 17.5 See Rx Instructions PO .COMPLEX 12/20/24 12/29/24 Rx gram-3.13 gram-1.6 gram oral soln #354 mL (Suprep Bowel Prep Kit) dutasteride 0.5 mg capsule 0.5 mg PO DAILY 12/29/24 01/01/25 History (Avodart) tamsulosin 0.4 mg capsule 0.4 mg PO DAILY 12/29/24 01/01/25 History hydrochlorothiazide 12.5 mg capsule 12.5 mg PO DAILY 01/01/25 01/01/25 History losartan 50 mg tablet 50 mg PO DAILY 01/01/25 01/01/25 History metoprolol succinate 100 mg 100 mg PO DAILY 01/01/25 01/01/25 History tablet,extended release 24 hr New Prescriptions to Start Prescriptions: Allergies Allergy/AdvReac Type Severity Reaction Status Date / Time No Known Allergies Allergy Verified 01/01/25 09:40 Exam Data for Last 24 hours Vital signs and Labs for Last 24 Hours: Temp Pulse Resp BP Pulse Ox O2 Del Method 97.3 F L 73 18 118/89 98 Room Air 01/01/25 09:52 01/01/25 09:52 01/01/25 09:52 01/01/25 09:52 01/01/25 09:52 01/01/25 09:52 I & O for Last 24 hours: Intake & Output 12/29/24 12/30/24 12/31/24 01/01/25 23:59 23:59 23:59 23:59 Weight 205 lb *Routine HEENT Exam Head: Present normocephalic Eye: Present EOMI and PERRL ENT: Present mucous membranes moist *Routine Neck Exam Neck: Present supple *Routine Respiratory Exam Respiratory: Present CTA bilaterally *Routine Cardiovascular Exam Cardiovascular: Present RRR *Routine Abdominal Exam Abdominal: Present soft and normoactive bowel sounds; Absent tenderness *Routine Rectal Exam Rectal:: deferred *Routine Genitalia Exam Genitalia:: deferred *Routine Extremities Exam Extremities: Absent cyanosis, clubbing or edema *Routine Skin Exam Skin: Present warm; Absent rash *Routine Neurological Exam Neurological: Present alert and oriented X3 Assessment and Plan *Assessment and plan (1) Personal history of colon polyps, unspecified: Status: Acute Category: Medical Code(s): Z86.0100 - Personal history of colon polyps, unspecified Plan A/P: 1. Screening for colon cancer with personal history of colon polyps is the preprocedural diagnosis. The patient will be anesthetized/sedated using MAC sedation. The patient has been seen and examined. Cardiac and lung assessment prior to the examination is stable. Proceed with planned screening colonoscopy.
--- NOTE | 2025-01-01 10:36 | HMH.PROCNOTE ---
[facility] Procedure Note Date: 01/01/25 Time: 10:55 Procedure Note:: Colonoscopy Procedure Report: Colonoscopy with cold snare polypectomy Endoscopist: Arpan Allison II, MD Referring physician: Luis Barksdale MD Date of Procedure: January 01, 2025 Equipment: Olympus 190 variable stiffness pediatric colonoscope Sedation: MAC sedation Indication: Mr. Wilson is a 54-year-old gentleman who is here for follow-up screening/surveillance colonoscopy. He does have a personal history of colon polyps and his last colonoscopy was 5 to 10 years ago. The patient does state that he has maternal great aunts with colon cancer. He reports no abdominal pain, weight loss, change in his bowel habits or rectal bleeding. Procedure: Prior to the procedure, a history and physical exam was performed, and patient's medications and allergies were reviewed. The risks, benefits and alternatives of the sedation and procedure were discussed with the patient. All questions were answered and informed consent was obtained. The patient was brought to the procedure room. Patient identification and proposed procedure were verified by the physician and the nurse. The patient was placed in a left lateral decubitus position and the scope was passed under direct vision. Throughout the procedure, the patient's blood pressure, pulse, and oxygen saturations were monitored continuously. The colonoscopy was accomplished without difficulty. The patient tolerated the procedure well. Findings: On digital rectal examination there was normal rectal tone. There were no external hemorrhoids. The prostate was 2-3+, mildly enlarged but smooth, soft, symmetric without nodules. The colonoscope was introduced through the anal canal to the rectum and advanced to the cecum. The ileocecal valve and appendiceal orifice were identified. The scope was advanced a short distance into the ileum which appeared grossly normal. The scope was then withdrawn into the colon. There was a single 3 to 4 mm transverse colon polyp removed via cold snare polypectomy. The remaining cecum, ascending, transverse, descending, sigmoid and rectum were grossly normal. There were no mucosal abnormalities identified. Upon retroflexion within the rectum there were grade 2 internal hemorrhoids. The preparation was excellent throughout with [place] Preparation Score of 9. The cecal time was 12 minutes. Impression: 1. Diminutive 3 to 4 mm transverse colon polyp 2. Grade 2 internal hemorrhoids Plan: I will follow-up the polyp histology and recommend repeat surveillance colonoscopy again in 7 to 10 years based upon the pathology.
[2025-01-01 10:52] VITALS: BP 76/54; PULSE 75; RESP 18; TEMP 36.3; O2SAT 95
[2025-01-01 11:02] VITALS: BP 86/56; PULSE 69; RESP 16; TEMP 36.3; O2SAT 95
[2025-01-01 11:12] VITALS: BP 107/76; PULSE 72; RESP 18; TEMP 36.3; O2SAT 98
[2025-01-01 11:22] VITALS: BP 105/75; PULSE 70; RESP 16; TEMP 36.3; O2SAT 98
== END 2025-01-01 11:30 | disposition home or self-care (01) ==
PROVIDERS: PCP Family Medicine; Visit Provider Internal Medicine Gastroenterology
PROC: 0DJD8ZZ Inspection of Lower Intestinal Tract, Via Natural or Artificial Opening Endoscopic (ICD-10-PCS; CPT 45378; principal; 2025-01-01 11:00)
DX: Z12.11 Encounter for screening for malignant neoplasm of colon (principal); D12.3 Benign neoplasm of transverse colon; K64.1 Second degree hemorrhoids; E78.5 Hyperlipidemia, unspecified; I10 Essential (primary) hypertension; Z87.891 Personal history of nicotine dependence; Z79.899 Other long term (current) drug therapy; Z86.0100 Personal history of colon polyps, unspecified
CPT/HCPCS: 45385; J2003; J2704; J7120

== ENCOUNTER 2025-01-30 09:50 | Outpatient (CLI) | payer BC, SELFPAY ==
--- OUTSIDE RECORDS SUMMARY | 2025-01-30 09:21 | XMS_ITS | Continuity of Care Document ---
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 liver disease) and in patients with increased creatinine generation due to increased muscle mass (e.g., muscle builders, anabolic steroids) or increased dietary intake. As drug clearance is proportiona l to total GFR and not GFR indexed to body surface area (BSA), in individuals with a BSA substantial ly different than 1.73 m2, drug dosing should be based on the reported eGFR value de-indexed from BSA by multiplying by the individual' s BSA and dividing by 1.73. CKD is diagnosed based on abnormaliti es of kidney structure or function, present for >3 months, with implication s for health and disease. CKD is classified and staged based on cause, eGFR and albuminuria (quantified as urine albumin to creatinine ratio). An eGFR >60 mL/min/1.73 m2 in the absence of increased urine albumin excretion or structural abnormaliti es does not represent CKD. eGFR CKD Interpretat ion (mL/min/1.7 3 m2) stage >=90 G1 Normal 60-89 G2 Mild decrease 45-59 G3A Mild to moderate decrease 30-44 G3B Moderate to severe decrease 15-29 G4 Severe decrease <15 G5 Kidney failure Ordering Provider: YONTAAN REAGAN Report Released Date/Time: Dec 07, 2024 09:46 AM Reporting Lab: VIJAY FERNANDEZ [facility] [address] [place] [phone] Performing Lab: VIJAY FERNANDEZ [address] [address] [facility] LIPID PROFILE CHOLESTERO L IN LDL [MASS/VOLU ME] IN SERUM OR PLASMA BY DIRECT ASSAY 61 mg/dL 0 - 100 12/07 Specimen Type: PLASMA Comment: Estimated Glomerular Filtration Rate (eGFR) calculated using the 2020 Chronic Kidney Disease-Epi demiology (CKD-EPI) Collaborati on creatinine equation; units of measure are mL/min/1.73 m2. Results are only valid for adults (>=18 years) whose serum creatinine is in a steady state. eGFR calculation s are not valid for patients with acute kidney injury and for patients on dialysis. Creatinine- based estimates of kidney function may also be inaccurate in patients with reduced creatinine generation due to decreased muscle mass (e.g., malnutritio n, severe hypoalbumin emia, sarcopenia, chronic neuromuscul ar disease, amputations , severe heart failure or liver disease) and in patients with increased creatinine generation due to increased muscle mass (e.g., muscle builders, anabolic steroids) or increased dietary intake. As drug clearance is proportiona l to total GFR and not GFR indexed to body surface area (BSA), in individuals with a BSA substantial ly different than 1.73 m2, drug dosing should be based on the reported eGFR value de-indexed from BSA by multiplying by the individual' s BSA and dividing by 1.73. CKD is diagnosed based on abnormaliti es of kidney structure or function, present for >3 months, with implication s for health and disease. CKD is classified and staged based on cause, eGFR and albuminuria (quantified as urine albumin to creatinine ratio). An eGFR >60 mL/min/1.73 m2 in the absence of increased urine albumin excretion or structural abnormaliti es does not represent CKD. eGFR CKD Interpretat ion (mL/min/1.7 3 m2) stage >=90 G1 Normal 60-89 G2 Mild decrease 45-59 G3A Mild to moderate decrease 30-44 G3B Moderate to severe decrease 15-29 G4 Severe decrease <15 G5 Kidney failure Ordering Provider: YONATAN REAGAN Report Released Date/Time: Dec 07, 2024 09:46 AM Reporting Lab: VIJAY FERNANDEZ [address] [address] Performing Lab: EMMANUEL-Jessica FERNANDEZ [address] [address] [facility] PANEL 1 CREATININE [MASS/VOLU ME] IN SERUM OR PLASMA 0.75 mg/dL 0.72 - 1.25 12/07 Specimen Type: PLASMA Comment: Estimated Glomerular Filtration Rate (eGFR) calculated using the 2020 Chronic Kidney Disease-Epi demiology (CKD-EPI) Collaborati on creatinine equation; units of measure are mL/min/1.73 m2. Results are only valid for adults (>=18 years) whose serum creatinine is in a steady state. eGFR calculation s are not valid for patients with acute kidney injury and for patients on dialysis. Creatinine- based estimates of kidney function may also be inaccurate in patients with reduced creatinine generation due to decreased muscle mass (e.g., malnutritio n, severe hypoalbumin emia, sarcopenia, chronic neuromuscul ar disease, amputations , severe heart failure or liver disease) and in patients with increased creatinine generation due to increased muscle mass (e.g., muscle builders, anabolic steroids) or increased dietary intake. As drug clearance is proportiona l to total GFR and not GFR indexed to body surface area (BSA), in individuals with a BSA substantial ly different than 1.73 m2, drug dosing should be based on the reported eGFR value de-indexed from BSA by multiplying by the individual' s BSA and dividing by 1.73. CKD is diagnosed based on abnormaliti es of kidney structure or function, present for >3 months, with implication s for health and disease. CKD is classified and staged based on cause, eGFR and albuminuria (quantified as urine albumin to creatinine ratio). An eGFR >60 mL/min/1.73 m2 in the absence of increased urine albumin excretion or structural abnormaliti es does not represent CKD. eGFR CKD Interpretat ion (mL/min/1.7 3 m2) stage >=90 G1 Normal 60-89 G2 Mild decrease 45-59 G3A Mild to moderate decrease 30-44 G3B Moderate to severe decrease 15-29 G4 Severe decrease <15 G5 Kidney failure Ordering Provider: YONATAN REAGAN Report Released Date/Time: Dec 07, 2024 09:46 AM Reporting Lab: VIJAY FERNANDEZ [address] [address] Performing Lab: VIJAY FERNANDEZ [address] [address] [facility] PANEL 1 UREA NITROGEN [MASS/VOLU ME] IN SERUM OR PLASMA 14 mg/dL 12/07 Specimen Type: PLASMA Comment: Estimated Glomerular Filtration Rate (eGFR) calculated using the 2020 Chronic Kidney Disease-Epi demiology (CKD-EPI) Collaborati on creatinine equation; units of measure are mL/min/1.73 m2. Results are only valid for adults (>=18 years) whose serum creatinine is in a steady state. eGFR calculation s are not valid for patients with acute kidney injury and for patients on dialysis. Creatinine- based estimates of kidney function may also be inaccurate in patients with reduced creatinine generation due to decreased muscle mass (e.g., malnutritio n, severe hypoalbumin emia, sarcopenia, chronic neuromuscul ar disease, amputations , severe heart failure or liver disease) and in patients with increased creatinine generation due to increased muscle mass (e.g., muscle builders, anabolic steroids) or increased dietary intake. As drug clearance is proportiona l to total GFR and not GFR indexed to body surface area (BSA), in individuals with a BSA substantial ly different than 1.73 m2, drug dosing should be based on the reported eGFR value de-indexed from BSA by multiplying by the individual' s BSA and dividing by 1.73. CKD is diagnosed based on abnormaliti es of kidney structure or function, present for >3 months, with implication s for health and disease. CKD is classified and staged based on cause, eGFR and albuminuria (quantified as urine albumin to creatinine ratio). An eGFR >60 mL/min/1.73 m2 in the absence of increased urine albumin excretion or structural abnormaliti es does not represent CKD. eGFR CKD Interpretat ion (mL/min/1.7 3 m2) stage >=90 G1 Normal 60-89 G2 Mild decrease 45-59 G3A Mild to moderate decrease 30-44 G3B Moderate to severe decrease 15-29 G4 Severe decrease <15 G5 Kidney failure Ordering Provider: YONATAN REAGAN Report Released Date/Time: Dec 07, 2024 09:46 AM Reporting Lab: VIJAY [address] [address] Performing Lab: E[address]ANU[address] [address] [facility] PANEL 1 GLUCOSE [MASS/VOLU ME] IN SERUM OR PLASMA 108 mg/dL 74 - 100 12/07 H Specimen Type: PLASMA Comment: Estimated Glomerular Filtration Rate (eGFR) calculated using the 2020 Chronic Kidney Disease-Epi demiology (CKD-EPI) Collaborati on creatinine equation; units of measure are mL/min/1.73 m2. Results are only valid for adults (>=18 years) whose serum creatinine is in a steady state. eGFR calculation s are not valid for patients with acute kidney injury and for patients on dialysis. Creatinine- based estimates of kidney function may also be inaccurate in patients with reduced creatinine generation due to decreased muscle mass (e.g., malnutritio n, severe hypoalbumin emia, sarcopenia, chronic neuromuscul ar disease, amputations , severe heart failure or liver disease) and in patients with increased creatinine generation due to increased muscle mass (e.g., muscle builders, anabolic steroids) or increased dietary intake. As drug clearance is proportiona l to total GFR and not GFR indexed to body surface area (BSA), in individuals with a BSA substantial ly different than 1.73 m2, drug dosing should be based on the reported eGFR value de-indexed from BSA by multiplying by the individual' s BSA and dividing by 1.73. CKD is diagnosed based on abnormaliti es of kidney structure or function, present for >3 months, with implication s for health and disease. CKD is classified and staged based on cause, eGFR and albuminuria (quantified as urine albumin to creatinine ratio). An eGFR >60 mL/min/1.73 m2 in the absence of increased urine albumin excretion or structural abnormaliti es does not represent CKD. eGFR CKD Interpretat ion (mL/min/1.7 3 m2) stage >=90 G1 Normal 60-89 G2 Mild decrease 45-59 G3A Mild to moderate decrease 30-44 G3B Moderate to severe decrease 15-29 G4 Severe decrease <15 G5 Kidney failure Ordering Provider: YONATAN REAGAN Report Released Date/Time: Dec 07, 2024 09:46 AM Reporting Lab: VIJAY FERNANDEZ [address] [address] Performing Lab: VIJAY FERNANDEZ [address] [address] [facility] PANEL 1 SODIUM [MOLES/VOL UME] IN SERUM OR PLASMA 137 mmol/L 136 - 145 12/07 Specimen Type: PLASMA Comment: Estimated Glomerular Filtration Rate (eGFR) calculated using the 2020 Chronic Kidney Disease-Epi demiology (CKD-EPI) Collaborati on creatinine equation; units of measure are mL/min/1.73 m2. Results are only valid for adults (>=18 years) whose serum creatinine is in a steady state. eGFR calculation s are not valid for patients with acute kidney injury and for patients on dialysis. Creatinine- based estimates of kidney function may also be inaccurate in patients with reduced creatinine generation due to decreased muscle mass (e.g., malnutritio n, severe hypoalbumin emia, sarcopenia, chronic neuromuscul ar disease, amputations , severe heart failure or liver disease) and in patients with increased creatinine generation due to increased muscle mass (e.g., muscle builders, anabolic steroids) or increased dietary intake. As drug clearance is proportiona l to total GFR and not GFR indexed to body surface area (BSA), in individuals with a BSA substantial ly different than 1.73 m2, drug dosing should be based on the reported eGFR value de-indexed from BSA by multiplying by the individual' s BSA and dividing by 1.73. CKD is diagnosed based on abnormaliti es of kidney structure or function, present for >3 months, with implication s for health and disease. CKD is classified and staged based on cause, eGFR and albuminuria (quantified as urine albumin to creatinine ratio). An eGFR >60 mL/min/1.73 m2 in the absence of increased urine albumin excretion or structural abnormaliti es does not represent CKD. eGFR CKD Interpretat ion (mL/min/1.7 3 m2) stage >=90 G1 Normal 60-89 G2 Mild decrease 45-59 G3A Mild to moderate decrease 30-44 G3B Moderate to severe decrease 15-29 G4 Severe decrease <15 G5 Kidney failure Ordering Provider: YONATAN REAGAN Report Released Date/Time: Dec 07, 2024 09:46 AM Reporting Lab: VIJAY FERNANDEZ [address] [address] Performing Lab: VIJAY FERNANDEZ [address] [address] [facility] PANEL 1 POTASSIUM [MOLES/VOL UME] IN SERUM OR PLASMA 4.4 mmol/L 3.5 - 5.1 12/07 Specimen Type: PLASMA Comment: Estimated Glomerular Filtration Rate (eGFR) calculated using the 2020 Chronic Kidney Disease-Epi demiology (CKD-EPI) Collaborati on creatinine equation; units of measure are mL/min/1.73 m2. Results are only valid for adults (>=18 years) whose serum creatinine is in a steady state. eGFR calculation s are not valid for patients with acute kidney injury and for patients on dialysis. Creatinine- based estimates of kidney function may also be inaccurate in patients with reduced creatinine generation due to decreased muscle mass (e.g., malnutritio n, severe hypoalbumin emia, sarcopenia, chronic neuromuscul ar disease, amputations , severe heart failure or liver disease) and in patients with increased creatinine generation due to increased muscle mass (e.g., muscle builders, anabolic steroids) or increased dietary intake. As drug clearance is proportiona l to total GFR and not GFR indexed to body surface area (BSA), in individuals with a BSA substantial ly different than 1.73 m2, drug dosing should be based on the reported eGFR value de-indexed from BSA by multiplying by the individual' s BSA and dividing by 1.73. CKD is diagnosed based on abnormaliti es of kidney structure or function, present for >3 months, with implication s for health and disease. CKD is classified and staged based on cause, eGFR and albuminuria (quantified as urine albumin to creatinine ratio). An eGFR >60 mL/min/1.73 m2 in the absence of increased urine albumin excretion or structural abnormaliti es does not represent CKD. eGFR CKD Interpretat ion (mL/min/1.7 3 m2) stage >=90 G1 Normal 60-89 G2 Mild decrease 45-59 G3A Mild to moderate decrease 30-44 G3B Moderate to severe decrease 15-29 G4 Severe decrease <15 G5 Kidney failure Ordering Provider: YONATAN REAGAN Report Released Date/Time: Dec 07, 2024 09:46 AM Reporting Lab: VIJAY FERNANDEZ [address] [address] Performing Lab: VIJAY FERNANDEZ [address] [address] [facility] PANEL 1 CHLORIDE [MOLES/VOL UME] IN SERUM OR PLASMA 107 mmol/L 98 - 107 12/07 Specimen Type: PLASMA Comment: Estimated Glomerular Filtration Rate (eGFR) calculated using the 2020 Chronic Kidney Disease-Epi demiology (CKD-EPI) Collaborati on creatinine equation; units of measure are mL/min/1.73 m2. Results are only valid for adults (>=18 years) whose serum creatinine is in a steady state. eGFR calculation s are not valid for patients with acute kidney injury and for patients on dialysis. Creatinine- based estimates of kidney function may also be inaccurate in patients with reduced creatinine generation due to decreased muscle mass (e.g., malnutritio n, severe hypoalbumin emia, sarcopenia, chronic neuromuscul ar disease, amputations , severe heart failure or liver disease) and in patients with increased creatinine generation due to increased muscle mass (e.g., muscle builders, anabolic steroids) or increased dietary intake. As drug clearance is proportiona l to total GFR and not GFR indexed to body surface area (BSA), in individuals with a BSA substantial ly different than 1.73 m2, drug dosing should be based on the reported eGFR value de-indexed from BSA by multiplying by the individual' s BSA and dividing by 1.73. CKD is diagnosed based on abnormaliti es of kidney structure or function, present for >3 months, with implication s for health and disease. CKD is classified and staged based on cause, eGFR and albuminuria (quantified as urine albumin to creatinine ratio). An eGFR >60 mL/min/1.73 m2 in the absence of increased urine albumin excretion or structural abnormaliti es does not represent CKD. eGFR CKD Interpretat ion (mL/min/1.7 3 m2) stage >=90 G1 Normal 60-89 G2 Mild decrease 45-59 G3A Mild to moderate decrease 30-44 G3B Moderate to severe decrease 15-29 G4 Severe decrease <15 G5 Kidney failure Ordering Provider: YONATAN REAGAN Report Released Date/Time: Dec 07, 2024 09:46 AM Reporting Lab: VIJAY FERNANDEZ [address] [address] Performing Lab: VIJAY FERNANDEZ [address] [address] [facility] PANEL 1 CARBON DIOXIDE, TOTAL [MOLES/VOL UME] IN SERUM OR PLASMA 24 mmol/L - 12/07 Specimen Type: PLASMA Comment: Estimated Glomerular Filtration Rate (eGFR) calculated using the 2020 Chronic Kidney Disease-Epi demiology (CKD-EPI) Collaborati on creatinine equation; units of measure are mL/min/1.73 m2. Results are only valid for adults (>=18 years) whose serum creatinine is in a steady state. eGFR calculation s are not valid for patients with acute kidney injury and for patients on dialysis. Creatinine- based estimates of kidney function may also be inaccurate in patients with reduced creatinine generation due to decreased muscle mass (e.g., malnutritio n, severe hypoalbumin emia, sarcopenia, chronic neuromuscul ar disease, amputations , severe heart failure or liver disease) and in patients with increased creatinine generation due to increased muscle mass (e.g., muscle builders, anabolic steroids) or increased dietary intake. As drug clearance is proportiona l to total GFR and not GFR indexed to body surface area (BSA), in individuals with a BSA substantial ly different than 1.73 m2, drug dosing should be based on the reported eGFR value de-indexed from BSA by multiplying by the individual' s BSA and dividing by 1.73. CKD is diagnosed based on abnormaliti es of kidney structure or function, present for >3 months, with implication s for health and disease. CKD is classified and staged based on cause, eGFR and albuminuria (quantified as urine albumin to creatinine ratio). An eGFR >60 mL/min/1.73 m2 in the absence of increased urine albumin excretion or structural abnormaliti es does not represent CKD. eGFR CKD Interpretat ion (mL/min/1.7 3 m2) stage >=90 G1 Normal 60-89 G2 Mild decrease 45-59 G3A Mild to moderate decrease 30-44 G3B Moderate to severe decrease 15-29 G4 Severe decrease <15 G5 Kidney failure Ordering Provider: YONATAN REAGAN Report Released Date/Time: Dec 07, 2024 09:46 AM Reporting Lab: VIJAY FERNANDEZ [address] [address] Performing Lab: VIJAY FERNANDEZ [address] [address] [facility] PANEL 1 CALCIUM [MASS/VOLU ME] IN SERUM OR PLASMA 9.0 mg/dL 8.4 - 10.2 12/07 Specimen Type: PLASMA Comment: Estimated Glomerular Filtration Rate (eGFR) calculated using the 2020 Chronic Kidney Disease-Epi demiology (CKD-EPI) Collaborati on creatinine equation; units of measure are mL/min/1.73 m2. Results are only valid for adults (>=18 years) whose serum creatinine is in a steady state. eGFR calculation s are not valid for patients with acute kidney injury and for patients on dialysis. Creatinine- based estimates of kidney function may also be inaccurate in patients with reduced creatinine generation due to decreased muscle mass (e.g., malnutritio n, severe hypoalbumin emia, sarcopenia, chronic neuromuscul ar disease, amputations , severe heart failure or liver disease) and in patients with increased creatinine generation due to increased muscle mass (e.g., muscle builders, anabolic steroids) or increased dietary intake. As drug clearance is proportiona l to total GFR and not GFR indexed to body surface area (BSA), in individuals with a BSA substantial ly different than 1.73 m2, drug dosing should be based on the reported eGFR value de-indexed from BSA by multiplying by the individual' s BSA and dividing by 1.73. CKD is diagnosed based on abnormaliti es of kidney structure or function, present for >3 months, with implication s for health and disease. CKD is classified and staged based on cause, eGFR and albuminuria (quantified as urine albumin to creatinine ratio). An eGFR >60 mL/min/1.73 m2 in the absence of increased urine albumin excretion or structural abnormaliti es does not represent CKD. eGFR CKD Interpretat ion (mL/min/1.7 3 m2) stage >=90 G1 Normal 60-89 G2 Mild decrease 45-59 G3A Mild to moderate decrease 30-44 G3B Moderate to severe decrease 15-29 G4 Severe decrease <15 G5 Kidney failure Ordering Provider: YONATAN REAGAN Report Released Date/Time: Dec 07, 2024 09:46 AM Reporting Lab: VIJAY FERNANDEZ [address] [address] Performing Lab: VIJAY FERNANDEZ [address] [address] [facility] PANEL 1 ANION GAP 3 IN SERUM OR PLASMA 6 meq/L 3 - 19 12/07 Specimen Type: PLASMA Comment: Estimated Glomerular Filtration Rate (eGFR) calculated using the 2020 Chronic Kidney Disease-Epi demiology (CKD-EPI) Collaborati on creatinine equation; units of measure are mL/min/1.73 m2. Results are only valid for adults (>=18 years) whose serum creatinine is in a steady state. eGFR calculation s are not valid for patients with acute kidney injury and for patients on dialysis. Creatinine- based estimates of kidney function may also be inaccurate in patients with reduced creatinine generation due to decreased muscle mass (e.g., malnutritio n, severe hypoalbumin emia, sarcopenia, chronic neuromuscul ar disease, amputations , severe heart failure or liver disease) and in patients with increased creatinine generation due to increased muscle mass (e.g., muscle builders, anabolic steroids) or increased dietary intake. As drug clearance is proportiona l to total GFR and not GFR indexed to body surface area (BSA), in individuals with a BSA substantial ly different than 1.73 m2, drug dosing should be based on the reported eGFR value de-indexed from BSA by multiplying by the individual' s BSA and dividing by 1.73. CKD is diagnosed based on abnormaliti es of kidney structure or function, present for >3 months, with implication s for health and disease. CKD is classified and staged based on cause, eGFR and albuminuria (quantified as urine albumin to creatinine ratio). An eGFR >60 mL/min/1.73 m2 in the absence of increased urine albumin excretion or structural abnormaliti es does not represent CKD. eGFR CKD Interpretat ion (mL/min/1.7 3 m2) stage >=90 G1 Normal 60-89 G2 Mild decrease 45-59 G3A Mild to moderate decrease 30-44 G3B Moderate to severe decrease 15-29 G4 Severe decrease <15 G5 Kidney failure Ordering Provider: YONATAN REAGAN Report Released Date/Time: Dec 07, 2024 09:46 AM Reporting Lab: [facility] FERNANDE[facility] [address] [address] Performing Lab: VIJAY FERNANDEZ [address] [address] [facility] PANEL 1 GLOMERULAR FILTRATION RATE/1.73 SQ M.PREDICTE D [VOLUME RATE/AREA] IN SERUM, PLASMA OR BLOOD BY CREATININE -BASED FORMULA (CKD-EPI 2020) >90 12/07 Specimen Type: PLASMA Comment: Estimated Glomerular Filtration Rate (eGFR) calculated using the 2020 Chronic Kidney Disease-Epi demiology (CKD-EPI) Collaborati on creatinine equation; units of measure are mL/min/1.73 m2. Results are only valid for adults (>=18 years) whose serum creatinine is in a steady state. eGFR calculation s are not valid for patients with acute kidney injury and for patients on dialysis. Creatinine- based estimates of kidney function may also be inaccurate in patients with reduced creatinine generation due to decreased muscle mass (e.g., malnutritio n, severe hypoalbumin emia, sarcopenia, chronic neuromuscul ar disease, amputations , severe heart failure or liver disease) and in patients with increased creatinine generation due to increased muscle mass (e.g., muscle builders, anabolic steroids) or increased dietary intake. As drug clearance is proportiona l to total GFR and not GFR indexed to body surface area (BSA), in individuals with a BSA substantial ly different than 1.73 m2, drug dosing should be based on the reported eGFR value de-indexed from BSA by multiplying by the individual' s BSA and dividing by 1.73. CKD is diagnosed based on abnormaliti es of kidney structure or function, present for >3 months, with implication s for health and disease. CKD is classified and staged based on cause, eGFR and albuminuria (quantified as urine albumin to creatinine ratio). An eGFR >60 mL/min/1.73 m2 in the absence of increased urine albumin excretion or structural abnormaliti es does not represent CKD. eGFR CKD Interpretat ion (mL/min/1.7 3 m2) stage >=90 G1 Normal 60-89 G2 Mild decrease 45-59 G3A Mild to moderate decrease 30-44 G3B Moderate to severe decrease 15-29 G4 Severe decrease <15 G5 Kidney failure Ordering Provider: YONATAN REAGAN Report Released Date/Time: Dec 07, 2024 09:46 AM Reporting Lab: [address] [address] Performing Lab: [address] [phone] [place] [address] PSA PROSTATE SPECIFIC AG [MASS/VOLU ME] IN SERUM OR PLASMA 3.942 ng/mL 0 - 3.999 12/07 Specimen Type: SERUM No comment entered. Ordering Provider: YONATAN REAGAN Report Released Date/Time: Dec 07, 2024 09:46 AM Reporting Lab: [id number] [address] Performing Lab: [place] [phone] [place] [address] URINALYS IS COLOR OF URINE Light Yellow 10/24 Specimen Type: URINE Comment: Microscopic not indicated Ordering Provider: YONATAN REAGAN Report Released Date/Time: Oct 11, 2023 07:25 PM Reporting Lab: [id number] [address] Performing Lab: [address] [address] [facility] URINALYS IS APPEARANCE OF URINE Clear 10/24 Specimen Type: URINE Comment: Microscopic not indicated Ordering Provider: YONATAN REAGAN Report Released Date/Time: Oct 11, 2023 07:25 PM Reporting Lab: [id number] [address] Performing Lab: [address] [address] [facility] URINALYS IS UROBILINOG EN [MASS/VOLU ME] IN URINE BY TEST STRIP Normalmg /dL 10/24 Specimen Type: URINE Comment: Microscopic not indicated Ordering Provider: YONATAN REAGAN Report Released Date/Time: Oct 11, 2023 07:25 PM Reporting Lab: [id number] [address] Performing Lab: [address] [address] [facility] URINALYS IS HEMOGLOBIN [PRESENCE] IN URINE BY TEST STRIP Negative 10/24 Specimen Type: URINE Comment: Microscopic not indicated Ordering Provider: YONATAN REAGAN Report Released Date/Time: Oct 11, 2023 07:25 PM Reporting Lab: [address] [address] Performing Lab: [address] [phone] [place] [address] URINALYS IS BILIRUBIN. TOTAL [PRESENCE] IN URINE BY TEST STRIP Negative 10/24 Specimen Type: URINE Comment: Microscopic not indicated Ordering Provider: YONATAN REAGAN Report Released Date/Time: Oct 11, 2023 07:25 PM Reporting Lab: [place] [phone] Performing Lab: [place] [phone] [place] [address] URINALYS IS KETONES [MASS/VOLU ME] IN URINE BY TEST STRIP Negative mg/dL 10/24 Specimen Type: URINE Comment: Microscopic not indicated Ordering Provider: YONATAN REAGAN Report Released Date/Time: Oct 11, 2023 07:25 PM Reporting Lab: [place] [phone] Performing Lab: [place] [phone] [facility] URINALYS IS PROTEIN [MASS/VOLU ME] IN URINE BY TEST STRIP Negative mg/dL 10/24 Specimen Type: URINE Comment: Microscopic not indicated Ordering Provider: YONATAN REAGAN Report Released Date/Time: Oct 11, 2023 07:25 PM Reporting Lab: [address] [address] Performing Lab: [address] [address] [facility] URINALYS IS PH OF URINE BY TEST STRIP 7.0 4.5 - 8.0 10/24 Specimen Type: URINE Comment: Microscopic not indicated Ordering Provider: YONATAN REAGAN Report Released Date/Time: Oct 11, 2023 07:25 PM Reporting Lab: [address] [address] Performing Lab: [address] [address] [facility] URINALYS IS NITRITE [PRESENCE] IN URINE BY TEST STRIP Negative 10/24 Specimen Type: URINE Comment: Microscopic not indicated Ordering Provider: YONATAN REAGAN Report Released Date/Time: Oct 11, 2023 07:25 PM Reporting Lab: [address] [address] Performing Lab: [address] [address] [facility] URINALYS IS LEUKOCYTE ESTERASE [PRESENCE] IN URINE BY TEST STRIP Negative 10/24 Specimen Type: URINE Comment: Microscopic not indicated Ordering Provider: YONATAN REAGAN Report Released Date/Time: Oct 11, 2023 07:25 PM Reporting Lab: [address] [address] Performing Lab: [address] [address] [facility] URINALYS IS SPECIFIC GRAVITY OF URINE 1.012 1.005 - 1.030 10/24 Specimen Type: URINE Comment: Microscopic not indicated Ordering Provider: YONATAN REAGAN Report Released Date/Time: Oct 11, 2023 07:25 PM Reporting Lab: [address] [address] Performing Lab: [address] [address] [facility] URINALYS IS GLUCOSE [MASS/VOLU ME] IN URINE BY TEST STRIP Negative mg/dL 10/24 Specimen Type: URINE Comment: Microscopic not indicated Ordering Provider: YONATAN REAGAN Report Released Date/Time: Oct 11, 2023 07:25 PM Reporting Lab: [address] [address] Performing Lab: [address] [address] [facility] Vital Signs Combined list of inpatient and outpatient Vital Signs from Department of Defense and Veterans Affairs, ranging from 12 months to all on record, depending upon the facility. Vital Sign Value Date Comments Source SYSTOLIC BLOOD PRESSURE 110 12/07/2024 08:53:35 [facility] DIASTOLIC BLOOD PRESSURE 69 12/07/2024 08:53:35 [facility] PULSE OXIMETRY 96 % 12/07/2024 08:53:35 [facility] WEIGHT 204 12/07/2024 08:53:35 [facility] BMI 30 kg/m2 12/07/2024 08:53:[facility] PAIN 0 12/07/2024 08:53:35 [facility] TEMPERATURE 97.8 12/07/2024 08:53:35 [facility] PULSE 59 12/07/2024 08:53:35 [facility] Encounters Combined list of: 1) Encounters from Department of [facility] Affairs facilities going backup to the last 18 months, not all [place] inpatient encounters are included; 2) Encounters from the Department of [facility] facilities going backup to 280 months. Location Location Details Encounter Type Encounter Number Reason For Visit Attending Provider ADM Date DC Date Status Disposition Source [facility] Outpatient Encounter [id number] 07/26 [place] Outpatient Encounter [id number] 08/17 [place] [facility] Outpatient Encounter [id number] JONATHAN DORSEY 10/10 [place] [facility] IMMUNIZATI ON ADMIN [id number] Diagnos is: ICD-10- CM Z23 Encount er for immuniz MIKEL Blair 10/10 [place] [facility] PRO PHONE CALL 5-10 MIN [id number] Diagnos is: ICD-10- CM R97.20 Elevate d prostat e specifi c antigen [PSA] BENI ELENA MARIBELL Taylor 10/11 [place] [facility] HEARING AID FITTING/CH ECKING [id number] Diagnos is: ICD-10- CM H90.3 Sensori neural hearing loss, bilater al SON,VARUN SAMREEN S 12/29 [place] [facility] Outpatient Encounter [id number] 07/26 [place] OFFICE O/P EST LOW 20 MIN [id number] Diagnos is: ICD-10- CM H52.4 Presbyo madelaine SHAW,SAURABH POP K 09/07 [place] [facility] Outpatient Encounter [id number] 12/07 [place] [facility] OFF[facility] O/P EST MOD 30 MIN [id number] Diagnos is: ICD-10- CM R25.2 Cramp and spasm MARY REAGAN 12/07 [place] [facility] PH1 ASSMT&MGMT NQHP 5-10 [id number] Diagnos is: ICD-10- CM R79.9 Abnorma l finding of blood chemistry associate ry, unspeci fiNESHA Bowles 12/07 [place] [facility] Outpatient Encounter [id number] 12/08 [place] Out[facility] Encounter [id number] 12/20 [place] HEARING AID CHECK BINAURAL [id number] Diagnos is: ICD-10- CM H90.3 Sensori neural hearing loss, bilater al VARUN SON S 12/27 [place] [facility] OFF/OP EST OCTOBER X REQ PHY/QHP [id number] Diagnos is: ICD-10- CM Z23 Encount er for immuniz CHAUNCEY LimaN DY A 12/27 [place] [facility] Social History Combined list of available smoking, tobacco, and other social history from Department of Defense and [facility] Affairs facilities. Social History Type Response Date Comment [facility] e Tobacco smoking status SCIS [place]-TOBACCO USE FORMER CIGARETTES 12/07/2024 [facility] History of tobacco use [place]-TOBACCO FORMER USER 09/28/2022 [facility] History of tobacco use [place]-TO[place]ACCO FORMER USER 08/06/2021 [facility]/2020 [facility] History of tobacco use [place]-TOBACCO FORMER USER 11/22/2018 [facility] History of tobacco use V9 QUIT TOBACCO >12 MO and <7 YRS AGO 11/09/2017 [facility] History of tobacco use V9 QUIT TOBACCO >12 MO and <7 YRS AGO 10/06/2016 [facility] History of tobacco use V9 LIFETIME NON-USER OF TOBACCO 01/09/2015 [facility] History of tobacco use V9 CURRENT TOBACCO USER 09/23/2010 [facility] History of tobacco use V9 CURRENT TOBACCO USER 12/13/2009 [facility] This section is an empty social history section. [employer]
[2025-01-30 10:41] LABS: Hematocrit 43.9 % (42.0-52.0); Hemoglobin 14.5 g/dL (14.1-18.0); Immature Granulocytes % 0.4 %; Mean Corpuscular HGB Conc 33.0 g/dL (31.8-35.4); Mean Corpuscular Hemoglobin 30.9 pg (27.0-31.2); Mean Corpuscular Volume 93.4 fl (80-94); Nucleated Red Blood Cells % 0 %; Platelet Count 236 K/mm3 (142-424); Red Blood Count 4.70 M/mm3 (4.60-6.20); Red Cell Distribution Width-SD 44.2 fL; White Blood Count 5.1 K/mm3 (4.8-10.8)
[2025-01-30 10:53] LABS: Albumin Level 4.1 g/dl (3.5-5.0); Chloride 106 mmol/L (98-107); Potassium 4.6 mmoL/L (3.5-5.1); Sodium 139 mmol/L (136-145)
[2025-01-30 10:55] LABS: Blood Urea Nitrogen 16 mg/dl (9-20); Creatinine,Serum 0.70 mg/dl (0.66-1.25); Estimated Glomerular Filt Rate 117 ml/min (>60); GFR (African American) 141 ML/MIN (>60)
[2025-01-30 10:56] LABS: Alanine Aminotransferase 18 U/L (12-78); Alkaline Phosphatase 72 U/L (38-126); Anion Gap 10.6 mEq/L (5-15); Aspartate Amino Transferase 25 U/L (17-59); Bilirubin,Direct 0.2 mg/dl (0.0-0.4); Bilirubin,Indirect 0.2 mg/dL (0.0-0.9); Bilirubin,Total 0.4 mg/dl (0.2-1.3); Bilirubin,Unconjugated 0.2 mg/dL (0.0-1.1); Calcium 9.2 mg/dl (8.4-10.2); Carbon Dioxide 27 mmol/L (22.0-30.0); Cholesterol 126 mg/dl (140-200); Glucose 108 mg/dl (74-100); Magnesium 1.9 mg/dl (1.6-2.3); Total Protein,Serum 6.3 g/dl (6.3-8.2); Triglycerides 126 mg/dl (30-150)
[2025-01-30 10:57] LABS: HDL Cholesterol 55 mg/dl (40-60)
[2025-01-30 11:16] LABS: Free T4 (Free Thyroxine) 0.82 ng/dl (0.78-2.19)
[2025-01-30 11:29] LABS: Thyroid Stimulating Hormone 1.08 uIU/mL (0.465-4.68)
== END 2025-01-30 23:59 | disposition home or self-care (01) ==
LOC: LAB 09:50
PROVIDERS: PCP Family Medicine; Visit Provider Nurse Practitioner
DX: I25.10 Atherosclerotic heart disease of native coronary artery without angina pectoris (principal); Q24.5 Malformation of coronary vessels; I11.9 Hypertensive heart disease without heart failure; R94.31 Abnormal electrocardiogram [ECG] [EKG]
CPT/HCPCS: 36415; 80048; 80061; 80076; 83735; 84439; 84443; 85025

== ENCOUNTER 2025-02-08 08:31 | Outpatient (CLI) | payer BC, SELFPAY ==
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
--- NOTE | 2025-02-08 08:45 | CA_ITS ---
APPROVED REPORT EXAM: Comprehensive 2D, Doppler, and color-flow Echocardiogram [employer]: Mirtha Pulido RVT Ht: 5 ft 8 in Wt: 205lbs BSA: 2.07 BP: 135/91 mmHg Indications: DIASTOLIC DYSFUNCTION 2D Dimensions Left Atrium 3.91 cm M: 3.0 - 4.0 LA Volume 40.70 mL RVID Base (AP4) 2.75 cm (M/F) 2.5-4.1 LA Volume Index 19.66 mL/m2 (M/F) 16-34 LVOT 2.18 cm (M/F) 1.5-2.5 EF AP4 51.00 % GL Strain -18.6 % M-Mode Dimensions RVDd 2.88 cm (0.9-2.6) LVDd 5.09 cm (3.5-5.7) Ao Diam 3.16 cm (2.0-3.7) LVDs 3.53 cm (3.5-5.7) IVSd 0.76 cm (0.6-1.1) PWd 0.57 cm (0.6-1.1) EF (Teich) 57.90% FS 30.60% EDV (Teich) 123.20 mL TAPSE 2.64 (<1.7) ESV (Teich) 51.90 mL LV Diastology E Decel Time 219 (160-240 msec) E/A Ratio 1.4 MED E' 8.6 (>= 7 cm/sec) E'/MED E' Ratio 8.08 (<= 14) LAT E' 9.7 (>= 10 cm/sec) E/LAT E' Ratio 7.16 (<= 14) Aortic Valve LVOT Max 94.0 (70-110 cm/s) DEACON Index 1.59 cm2/m2 LVOT VTI 19.04 cm AoV Peak Luis. 101.0 (50-130 cm/s) AO Peak GR. 3.60 mmHg AO Mean GR. 2.20 (<5 mmHg) AO VTI 21.6 (18-25 cm) DEACON (VTI) 3.29 (2.5-4.5 cm2) Mitral Valve MV E Max Luis. 69.0 (40-130 cm/s) MV A Velocity 49.0 (40-130 cm/s) E/A Ratio 1.42 MV Decel. Time 219 (160-240 ms) Left Ventricle The left ventricle is normal size. Left ventricular systolic function is normal. The left ventricular ejection fraction is within the normal range. There is increased left ventricular wall thickness. There is normal LV segmental wall motion. Transmitral Doppler flow pattern suggests impaired LV relaxation. LVEF is 55% Right Ventricle The right ventricle is normal size. The right ventricular systolic function is normal. Atria The left atrium size is normal. The right atrium size is normal. There is no color Doppler evidence of interatrial shunt. Aortic Valve The aortic valve opens well. There is no hemodynamically significant aortic valvular stenosis. No aortic regurgitation is present. Mitral Valve The mitral valve is normal in structure. No evidence of mitral valve stenosis. Trace mitral regurgitation is present. Tricuspid Valve The tricuspid valve leaflets are thin and pliable. Trace tricuspid regurgitation. There is insufficient TR jet to estimate RVSP. Pulmonic Valve The pulmonary valve is grossly normal in structure. Trace pulmonic valve regurgitation is present. Great Vessels The aortic root is normal in size. IVC is normal in size and collapses >50% with inspiration. Pericardium There is no pericardial effusion. Other Information Study Quality: Fair Conclusion Normal biventricular systolic function. No significant valvular stenosis or regurgitation. Electronically signed by : Marni Malik MD 02/09/2025 21:44:06
== END 2025-02-08 23:59 | disposition home or self-care (01) ==
LOC: RT 08:32
PROVIDERS: PCP Family Medicine; Visit Provider Nurse Practitioner
DX: I11.9 Hypertensive heart disease without heart failure (principal); I25.10 Atherosclerotic heart disease of native coronary artery without angina pectoris; Q24.5 Malformation of coronary vessels; R94.31 Abnormal electrocardiogram [ECG] [EKG]
CPT/HCPCS: 93306